=== PATIENT | female | born 1975 | race Two or more races ===

== ENCOUNTER 2024-12-07 10:29 | Outpatient (RCR) | payer OTHER, SELFPAY ==
[2024-12-07 11:50] LABS: HCG Qualitative,Urine Negative
--- NOTE | 2024-12-07 12:30 | XR_ITS ---
Examination: ELVER, hepatobiliary radioisotope scan Gallbladder ejection fraction study. Date and time of exam: December 07, 2024 1210 hours INDICATIONS: Upper abdominal pain after eating 18 months Technique: 5.6 mCi of 99M Hepatolite administered. Serial imaging then obtained from immediate through 60 minutes. 1.4 mcg selective catheter Kinevac administered for gallbladder ejection fraction study. Findings: Radioisotope activity within the liver is reasonably homogenous. Gallbladder, common bile duct small bowel activity noted Impression: Gallbladder activity Abnormal gallbladder ejection fraction, 11%, normal greater than 35%
== END 2024-12-12 23:59 | disposition home or self-care (01) ==
LOC: SNUC 10:29
PROVIDERS: PCP Nurse Practitioner Family; Referring Provider Specialist; Visit Provider Specialist
DX: R93.89 Abnormal findings on diagnostic imaging of other specified body structures (principal); Z32.00 Encounter for pregnancy test, result unknown
CPT/HCPCS: 78227; 81025; A9537; J2805